=== PATIENT | female | born 1930 | race Caucasian/White ===

== ENCOUNTER 2020-10-28 15:39 | Inpatient (IN) | payer MEDICARE ==
[~2020-10-28] VITALS: Ht 160 cm; Wt 54.1 kg
[2020-10-28 15:47] VITALS: BP 122/55
[2020-10-28] MEDS ORDERED: METFORMIN HCL500 M2 PO (16:27)
[2020-10-28] MEDS ORDERED: SIMVASTATIN20 MG PO (16:28)
[2020-10-28] MEDS ORDERED: K-TAB ER8 MEQ PO (16:28)
[2020-10-28] MEDS ORDERED: GLIPIZIDE5 M1 PO (16:29)
[2020-10-28] MEDS ORDERED: ATENOLOL50 M1 PO (16:30)
[2020-10-28] MEDS ORDERED: LOSARTAN-HCTZ1 EAC1 PO (16:31)
[2020-10-28 17:52] VITALS: BP 123/78
[2020-10-28 20:00] VITALS: BP 135/86
[2020-10-29] VITALS: BP 122/89
[2020-10-29 06:49] LABS: BASO % 0.4 % (0.0-1.0); EOS # 0.1 10*3/uL (0.0-0.4); EOS % 1.2 % (1.0-4.0); HEMATOCRIT 43.3 % (37.0-47.0); LYMPH # 1.3 10*3/uL (1.3-4.4); LYMPH % 18.2 % (27.0-41.0); MEAN CELL VOLUME 91.9 fl (81.0-99.0); MEAN CORPUSCULAR HGB 29.7 pg (27.0-31.0); MEAN CORPUSCULAR HGB CONC 32.3 g/dl (33.0-37.0); MEAN PLATELET VOLUME 11.5 fl (9.6-12.3); MONO # 0.7 10*3/uL (0.1-1.0); MONO % 10.1 % (3.0-9.0); NEUT % 69.5 % (47.0-73.0); PLATELET COUNT AUTOMATED 123 10*3/uL (130-400); RED BLOOD COUNT 4.71 10*6/uL (4.10-5.10); RED CELL DISTRI WIDTH 13.7 % (0-14.5); WHITE BLOOD COUNT 7.2 10*3/uL (4.8-10.8)
[2020-10-29 06:56] LABS: ALBUMIN 3.2 gm/dl (3.1-4.5); BUN 22 mg/dl (7-24); CHLORIDE 105 mmol/L (98-107); POTASSIUM 3.5 mmol/L (3.5-5.1); SODIUM 137 mmol/L (136-145)
[2020-10-29 07:04] LABS: ALKALINE PHOSPHATASE 69 U/L (45-117); CHOLESTEROL 122 mg/dL (<200); CREATININE 0.87 mg/dL (0.55-1.02); FREE T4 1.56 ng/dl (0.76-1.46); HDL CHOLESTEROL 43 mg/dl (40-60); LDL CHOLESTEROL 59 mg/dL (9-159); SGOT/AST 17 IU/L (3-35); SGPT/ALT 23 U/L (12-78); TOTAL PROTEIN 6.6 gm/dL (6.4-8.2); TRIGLYCERIDES 101 mg/dl (<150); VLDL CHOLESTEROL 20 mg/dL (6-40)
[2020-10-29 07:37] LABS: ACT PARTIAL THROMBO TIME 25.2 SECONDS (20.0-32.1); INTERNATIONAL NORM RATIO 1.1 (2.0-3.5)
[2020-10-29 08:00] VITALS: BP 136/87
[2020-10-29 09:34] LABS: VITAMIN D, 25-HYDROXY 13.9 ng/mL (30-100)
[2020-10-29 12:00] VITALS: BP 122/70
[2020-10-29 16:00] VITALS: BP 124/90; BP 144/69
[2020-10-29 20:00] VITALS: BP 133/75
[2020-10-30] VITALS: BP 133/56
[2020-10-30 08:00] VITALS: BP 124/84
[2020-10-30 12:00] VITALS: BP 106/56
[2020-10-30 16:00] VITALS: BP 108/80
[2020-10-30 20:04] VITALS: BP 114/62
[2020-10-31] VITALS: BP 112/60
[2020-10-31 08:00] VITALS: BP 136/80
[2020-10-31 12:00] VITALS: BP 132/78
== END 2020-10-31 16:45 | DRG 91 ==
LOC: ED 15:39 → 5E 16:20 → EDHOLD 16:20 → 5E 17:59
PROVIDERS: Family Medicine; ADMIT Internal Medicine; ATTEND Internal Medicine
DX: R26.89 Other abnormalities of gait and mobility (principal); N17.0 Acute kidney failure with tubular necrosis; R53.81 Other malaise; I10 Essential (primary) hypertension; E78.5 Hyperlipidemia, unspecified; E11.65 Type 2 diabetes mellitus with hyperglycemia; Z20.822 Contact with and (suspected) exposure to COVID-19; Z82.49 Family history of ischemic heart disease and other diseases of the circulatory system; Z80.8 Family history of malignant neoplasm of other organs or systems; Z79.899 Other long term (current) drug therapy; W18.39XA Other fall on same level, initial encounter; Y93.89 Activity, other specified; Y92.098 Other place in other non-institutional residence as the place of occurrence of the external cause; Y99.8 Other external cause status